=== PATIENT | male | born 1985 | race Caucasian/White ===

== ENCOUNTER 2017-08-22 09:01 | Emergency (ER) | payer OTHER ==
[2017-08-22 09:09] VITALS: BP 139/82
--- NOTE | 2017-08-22 09:40 | XRAY Report ---
EXAM: RIGHT HAND RADIOGRAPHY EXAM DATE: 08/22/2017 09:32 AM. CLINICAL HISTORY: Smashed hand working on car yesterday. COMPARISON: None. TECHNIQUE: 3 views. FINDINGS: Bones: Normal. No fractures or bone lesions. Joints: Normal. No subluxations. Soft Tissues: Soft tissue swelling dorsal to distal metacarpals and metacarpophalangeal joints. No r adiopaque foreign body or soft tissue gas demonstrated. IMPRESSION: 1. Soft tissue swelling dorsal to distal metacarpals and metacarpophalangeal joints. No radiopaque fo reign body or soft tissue gas demonstrated. [facility] Referring Provider Line: [phone] SITE ID: [id number]
--- NOTE | 2017-08-22 09:48 | ED Physician Documentation ---
PD HPI UPPER EXT INJURY - Stated complaint Stated Complaint: RT HAND INJ - Chief complaint Chief Complaint: Ext Problem - History obtained from History obtained from: Patient - History of Present Illness Location: Right, Hand Type of injury: Blunt / blow Where injury occurred: Work Timing - onset: Enter time (2199), Last night Timing - duration: Hours Timing - details: Abrupt onset, Still present Improved by: Rest, Ice, Immobilization Worsened by: Moving, Palpating Associated symptoms: Swelling, Discolored. 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 He has swelling to the dorsum of the hand and pain with movement. Review of Systems Constitutional: denies: Fever Eyes: denies: Decreased vision Ears: denies: Ear pain Nose: denies: Congestion Throat: denies: Sore throat Respiratory: denies: Cough GI: denies: Vomiting PD PAST MEDICAL HISTORY - Past Medical History Past Medical History: Yes Cardiovascular: None Respiratory: None Endocrine/Autoimmune: None GI: Other : None HEENT: None Psych: None Musculoskeletal: None Derm: None - Past Surgical History Past Surgical History: Yes - Present Medications Home Medications: Ambulatory Orders Medication Instructions Recorded Confirmed No Known Home Medications [No 08/22/17 08/22/17 Known Home Medications] - Allergies Allergies/Adverse Reactions: Allergies Allergy/AdvReac Type Severity Reaction Status Date / Time meperidine HCl * Allergy Unknown Verified 08/22/17 09:09 [From Demerol] morphine Allergy Unknown Verified 08/22/17 09:09 - Social History Does the pt smoke?: No Smoking Status: Never smoker Does the pt drink ETOH?: Yes Does the pt have substance abuse?: No - Immunizations Immunizations are current?: Yes - POLST Patient has POLST: No PD ED PE NORMAL - Vitals Vital signs reviewed: Yes (hypertensive ) - General General: Alert and oriented X 3, No acute distress, Well developed/nourished - HEENT HEENT: Atraumatic, PERRL - Respiratory Respiratory: No respiratory distress - Derm Derm: Normal color, Warm and dry, No rash - Extremities Extremities: Other (There is swelling and erythema to the dorsum of the right hand most significant at the 3rd MCP joint. ) - Neuro Neuro: No motor deficit, No sensory deficit Eye Opening: Spontaneous Motor: Obeys Commands Verbal: Oriented GCS Score: 15 - Psych Psych: Normal mood, Normal affect Results - Vitals Vitals: Vital Signs - 24 hr 08/22/17 09:06 Temperature 36.8 C Heart Rate 83 Respiratory 18 Rate Blood Pressure 139/82 H O2 Saturation 98 Oxygen O2 Source Room air - Rads (name of study) hand x-ray Radiology: Prelim report reviewed (Impression: 1. Soft tissue swelling dorsal to distal metacarpals and metacarpal phalangeal joints no radiopaque foreign body or soft tissue gas demonstrated. ), EMP read indepedently, See rad report Procedures - Splint (location) right hand Splint applied by: Tech Type of splint: Fiberglass, Volar cock up Other: Patient tolerated well, No complications, Neurovascular intact, Good alignment PD MEDICAL DECISION MAKING - ED course Complexity details: reviewed results, re-evaluated patient, considered differential, d/w patient ED course: 32-year-old male with a contusion to the right hand does not have evidence of fracture he has had a lot of swelling to this he is placed into a volar splint. Departure - Departure Disposition: 01 Home, Self Care Clinical Impression: Contusion of right hand Qualifiers: Encounter type: initial encounter Qualified Code(s): S60.221A - Contusion of right hand, initial encounter Condition: Stable Instructions: ED Contusion Hand Follow-Up: [facility] Taviashakeel Camejo [Provider Group] Forms: Activity restrictions
== END 2017-08-22 10:09 | disposition home or self-care (01) ==
LOC: ED 09:01
DX: S60.221A Contusion of right hand, initial encounter (principal); W20.8XXA Other cause of strike by thrown, projected or falling object, initial encounter; Y92.008 Other place in unspecified non-institutional (private) residence as the place of occurrence of the external cause
CPT/HCPCS: 29125; 99282

== ENCOUNTER 2018-02-03 15:42 | Emergency (ER) | payer OTHER ==
[2018-02-03 15:59] VITALS: BP 136/82
--- NOTE | 2018-02-03 17:13 | XRAY Report ---
Reason: chest pain Procedure Date: 02/03/2018 Accession Number: [id number] / [id number] Procedure: XR - Chest 2 View X-Ray CPT Code: 11210 FULL RESULT: EXAM: CHEST RADIOGRAPHY EXAM DATE: 02/03/2018 05:04 PM. CLINICAL HISTORY: Chest pain. COMPARISON: None. TECHNIQUE: 2 views. FINDINGS: Lungs/Pleura: No dense consolidation. No large effusion or pneumothorax. No pulmonary edema. Mediastinum: Heart and mediastinal contours are unremarkable. Other: None. IMPRESSION: No acute radiographic pulmonary abnormalities. [facility]
[2018-02-03] MEDS ORDERED: BENZONATATE 100 MG CAPSULE PO STA (17:20)
[2018-02-03] MEDS ORDERED: NAPROXEN 250 MG TABLET PO STA (17:20)
[2018-02-03] MEDS ORDERED: PSEUDOEPHEDRINE 30 MG TABLET PO STA (17:24)
--- NOTE | 2018-02-03 17:24 | ED Physician Documentation ---
History of Present Illness - Stated complaint Stated Complaint: COUGH/CP/SOA - Chief complaint Chief Complaint: General - Additonal information Additional information: 32-year-old male presents the emergency department with 3 days of nasal co ngestion, sore throat, cough chills and body aches. No relief with [id number] therapy. Symptoms are described as moderate. No other associated symptoms. Review of Systems Constitutional: reports: Fever, Chills, Myalgias, Fatigue Eyes: denies: Discharge Ears: reports: Ear pain Nose: reports: Rhinorrhea / runny nose, Congestion Throat: reports: Sore throat Respiratory: reports: Cough. denies: Hemoptysis : denies: Dysuria Skin: denies: Rash Musculoskeletal: denies: Neck pain Neurologic: denies: Generalized weakness Immunocompromised: denies: Chemotherapy PD PAST MEDICAL HISTORY - Past Medical History Past Medical History: No Cardiovascular: None Respiratory: None Endocrine/Autoimmune: None GI: Other : None HEENT: None Psych: None Musculoskeletal: None Derm: None - Past Surgical History Past Surgical History: Yes - Present Medications Home Medications: Ambulatory Orders Medication Instructions Recorded Confirmed Benzonatate [Tessalon Perle] 100 - 200 mg PO TID PRN #30 capsule 02/03/18 Naproxen [Naprosyn] 500 mg PO BID PRN 30 Days #30 02/03/18 tablet Pseudoephedrine HCl [Sudafed 240 mg PO DAILY PRN #30 tab.er.24h 02/03/18 24-Hour] - Allergies Allergies/Adverse Reactions: Allergies Allergy/AdvReac Type Severity Reaction Status Date / Time meperidine HCl * Allergy Unknown Verified 08/22/17 09:09 [From Demerol] morphine Allergy Unknown Verified 08/22/17 09:09 - Social History Does the pt smoke?: No Smoking Status: Never smoker Does the pt drink ETOH?: Yes Does the pt have substance abuse?: No - Immunizations Immunizations are current?: Yes - POLST Patient has POLST: No PD ED PE NORMAL - General General: Alert and oriented X 3, No acute distress - HEENT HEENT: Atraumatic, PERRL, EOMI, Ears normal, Pharynx benign - Neck Neck: Supple, no meningeal sign - Cardiac Cardiac: RRR, Strong equal pulses - Respiratory Respiratory: No respiratory distress, Clear bilaterally - Derm Derm: Normal color, Warm and dry - Extremities Extremities: No deformity, No edema - Neuro Neuro: Alert and oriented X 3, Normal speech - Psych Psych: Normal mood Results - Vitals Vitals: Vital Signs - 24 hr 02/03/18 15:57 Temperature 36.8 C Heart Rate 85 Respiratory 18 Rate Blood Pressure 136/82 H O2 Saturation 98 Oxygen O2 Source Room air - Rads (name of study) CXR Radiology: Final report received PD MEDICAL DECISION MAKING - ED course ED course: The patient's symptoms are suggestive of an influenza-like illness. The patient has no clinical evidence of sepsis, pneumonia or an etiology that would necessitate admission to the hospital or antibiotic therapy. The patient appears appropriate for outpatient symptomatic therapy. I discussed warning signs and the natural course of influenza. I recommended returning to the emergency department immediately for any worsening or any concerns. Departure - Departure Disposition: 01 Home, Self Care Clinical Impression: Influenza-like syndrome Condition: Good Instructions: ED Flu Prescriptions: Benzonatate [Tessalon Perle] 100 - 200 mg PO TID PRN #30 capsule PRN Reason: Cough Naproxen [Naprosyn] 500 mg PO BID PRN 30 Days #30 tablet PRN Reason: Pain Pseudoephedrine HCl [Sudafed 24-Hour] 240 mg PO DAILY PRN #30 tab.er.24h PRN Reason: Cold Symptons Comments: Please follow-up with primary care in 7-10 days for recheck. Please return to the emergency department immediately for worsening symptoms or any concerns. Forms: Activity restrictions
== END 2018-02-03 17:32 | disposition home or self-care (01) ==
LOC: ED 15:42
DX: J11.1 Influenza due to unidentified influenza virus with other respiratory manifestations (principal)
CPT/HCPCS: 71046; 93005; 99283; A9270

== ENCOUNTER 2018-03-17 09:22 | Emergency (ER) | payer OTHER ==
[2018-03-17 10:02] LABS: BASOPHILS % (AUTO) 0.1 %; EOSINOPHILS % (AUTO) 0.1 %; HGB - HEMOGLOBIN 15.6 g/dL (14.0-18.0); LYMPHOCYTES # (AUTO) 0.9 10^3/uL (1.5-3.5); LYMPHOCYTES % (AUTO) 7.1 %; MEAN CORPUSCULAR HEMOGLOBIN 30.3 pg (27.0-31.0); MEAN CORPUSCULAR HGB CONC 35.4 g/dL (32.0-36.0); MEAN CORPUSCULAR VOLUME 85.5 fL (80.0-94.0); MEAN PLATELET VOLUME 7.4 fL (7.4-11.4); MONOCYTES # (AUTO) 0.3 10^3/uL (0.0-1.0); MONOCYTES % (AUTO) 2.3 %; NEUTROPHILS # (AUTO) 11.6 10^3/uL (1.5-6.6); NEUTROPHILS % (AUTO) 90.4 %; PLT - PLATELET COUNT 209 10^3/uL (130-450); RED BLOOD COUNT 5.14 10^6/uL (4.70-6.10); RED CELL DISTRIBUTION WIDTH 12.5 % (12.0-15.0); WHITE BLOOD COUNT 12.8 x10^3/uL (4.8-10.8)
[2018-03-17 10:16] LABS: ALBUMIN 4.8 g/dL (3.2-5.5); ALBUMIN/GLOBULIN RATIO 1.8 (1.0-2.2); BILIRUBIN,TOTAL 0.7 mg/dL (0.2-1.0); CALCIUM 9.2 mg/dL (8.5-10.3); CREATININE 0.9 mg/dL (0.6-1.2); TOTAL PROTEIN 7.5 g/dL (6.7-8.2)
[2018-03-17] MEDS ORDERED: SODIUM CHLORIDE 0.9% 1,000 ML IV ONE (10:21)
[2018-03-17] MEDS ORDERED: ONDANSETRON 4 MG/2 ML VIAL IVP STA (10:21)
[2018-03-17] MEDS ORDERED: IOVERSOL 320 100 ML VIAL IVP ONE ×2 (10:50→11:01)
[2018-03-17] MEDS ORDERED: HYDROmorphone 1 MG/ML CARPUJECT IVP STA (11:04)
[2018-03-17 11:21] LABS: BILIRUBIN,URINE NEGATIVE (NEGATIVE); GLUCOSE, URINE (UA) NEGATIVE (NEGATIVE); KETONES,URINE (UA) TRACE mg/dL (NEGATIVE); LEUKOCYTE ESTERASE, URINE NEGATIVE (NEGATIVE); NITRITE,URINE NEGATIVE (NEGATIVE); OCCULT BLOOD,URINE NEGATIVE (NEGATIVE); PH,URINE 8.5 PH (5.0-7.5); PROTEIN,URINE NEGATIVE (NEGATIVE); UROBILINOGEN,URINE 0.2 (NORMAL) E.U./dL (NORMAL)
[2018-03-17 11:23] LABS: CLARITY,URINE SL. CLOUDY (CLEAR)
[2018-03-17 11:31] LABS: AMORPHOUS SEDIMENT,UR Moderate /LPF; BACTERIA,URINE Rare /HPF (None Seen); RBC,URINE 0-5 /HPF (0-5); SQUAMOUS EPITHELIAL CELL,UR NONE SEEN (<= Few)
--- NOTE | 2018-03-17 11:43 | CT Report ---
Reason: pain, n/v/d Procedure Date: 03/17/2018 Accession Number: [id number] / [id number] Procedure: CT - Abdomen/Pelvis W/ CPT Code: FULL RESULT: EXAM: CT ABDOMEN AND PELVIS WITH CONTRAST EXAM DATE: 03/17/2018 10:58 AM. CLINICAL HISTORY: 32-year-old male with abdominal pain, nausea, vomiting and diarrhea. COMPARISONS: None. TECHNIQUE: Emergent axial helical CT imaging was performed through the abdomen and pelvis. IV contrast: Opti 320, 100 mL. Enteric contrast: None. Reconstructions: Coronal and sagittal. In accordance with CT protocol optimization, one or more of the following dose reduction techniques were utilized for this exam: automated exposure control, adjustment of mA and/or KV based on patient size, or use of iterative reconstructive technique. FINDINGS: Lung Bases: Unremarkable. Liver: Normal. No masses. Gallbladder/Bile Ducts: No gallstones, wall thickening or dilated bile ducts. Spleen: Normal. Pancreas: Normal. Adrenal Glands: Normal. Kidneys: Normal. No masses, nephrolithiasis, hydroureter or hydronephrosis. Peritoneal Cavity/Bowel: Findings consistent with partial resection of the transverse and portion of the left colon with dilatation of the right-sided portion of the transverse colon with large amount of stool retention. Surrounding surgical clips. Moderate stool in the right colon. Remainder of the bowel unremarkable. No free fluid, free air or adenopathy. No masses or acute inflammatory process. Appendix not demonstrated and may be surgically absent. No secondary signs of appendicitis. Pelvic Organs: Normal. The bladder and visualized pelvic organs are within normal limits. Vasculature: No aneurysms or other significant abnormality. Bones: Normal. Other: None. IMPRESSION: Postsurgical changes consistent with partial resection of the transverse colon with dilatation of the right side of the transverse colon with moderate to large amount of stool content and moderate stool in the right colon, not dilated. Remainder of the bowel unremarkable. Abdomen and pelvis otherwise normal by CT findings. [facility]
[2018-03-17 12:22] VITALS: BP 121/66
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
== END 2018-03-17 13:14 | disposition home or self-care (01) ==
LOC: ED 09:22
DX: R10.33 Periumbilical pain (principal); R19.7 Diarrhea, unspecified
CPT/HCPCS: 36415; 74177; 80053; 81001; 83690; 85025; 96361; 96374; 96375; 99283; J1170; Q9967; 81003; 87086

== ENCOUNTER 2018-04-18 04:31 | Outpatient (CLI) | payer OTHER | END 2018-04-18 04:32 | disposition EMS.NT | LOC: EMS 04:31 | PROVIDERS: ATTEND Surgery | DX: R11.2 Nausea with vomiting, unspecified (principal) ==

== ENCOUNTER 2018-04-18 05:26 | Emergency (ER) | payer OTHER ==
[2018-04-18] MEDS ORDERED: ONDANSETRON 4 MG/2 ML VIAL IVP STA (05:37)
[2018-04-18] MEDS ORDERED: SODIUM CHLORIDE 0.9% 1,000 ML IV ONE (05:37)
[2018-04-18 05:38] VITALS: BP 122/84
[2018-04-18 05:45] LABS: BASOPHILS % (AUTO) 0.2 %; EOSINOPHILS % (AUTO) 0.2 %; HGB - HEMOGLOBIN 14.9 g/dL (14.0-18.0); LYMPHOCYTES # (AUTO) 0.3 10^3/uL (1.5-3.5); LYMPHOCYTES % (AUTO) 3.4 %; MEAN CORPUSCULAR HEMOGLOBIN 29.9 pg (27.0-31.0); MEAN CORPUSCULAR HGB CONC 33.8 g/dL (32.0-36.0); MEAN CORPUSCULAR VOLUME 88.5 fL (80.0-94.0); MEAN PLATELET VOLUME 7.4 fL (7.4-11.4); MONOCYTES # (AUTO) 0.3 10^3/uL (0.0-1.0); MONOCYTES % (AUTO) 2.9 %; NEUTROPHILS # (AUTO) 9.1 10^3/uL (1.5-6.6); NEUTROPHILS % (AUTO) 93.3 %; PLT - PLATELET COUNT 180 10^3/uL (130-450); RED CELL DISTRIBUTION WIDTH 12.7 % (12.0-15.0); WHITE BLOOD COUNT 9.7 x10^3/uL (4.8-10.8)
[2018-04-18 05:58] LABS: ALBUMIN 4.4 g/dL (3.2-5.5); ALBUMIN/GLOBULIN RATIO 1.8 (1.0-2.2); BILIRUBIN,TOTAL 1.3 mg/dL (0.2-1.0); CALCIUM 8.8 mg/dL (8.5-10.3); TOTAL PROTEIN 6.8 g/dL (6.7-8.2)
--- NOTE | 2018-04-18 06:00 | ED Physician Documentation ---
PD HPI NVD - Stated complaint Stated Complaint: DIARRHEA, VOMITING - Chief complaint Chief Complaint: Abd Pain - History obtained from History obtained from: Patient - History of Present Illness Timing - onset: How many hours ago (24) Timing - duration: Hours (24) Timing - details: Gradual onset Pain level max: 3 Pain level now: 3 Associated symptoms: Abdominal pain Contributing factors: No: Sick contact, Bad food, Anticoagulated Improved by: Laying still Worsened by: Eating - Additonal information Additional information: 32-year-old male with 24 hours of vomiting, diarrhea, abdominal pain. Review of Systems Ten Systems: 10 systems reviewed and negative Constitutional: reports: Reviewed and negative Eyes: reports: Reviewed and negative Ears: reports: Reviewed and negative Nose: reports: Reviewed and negative Throat: reports: Reviewed and negative Cardiac: reports: Reviewed and negative Respiratory: reports: Reviewed and negative GI: reports: Reviewed and negative : reports: Reviewed and negative Skin: reports: Reviewed and negative Musculoskeletal: reports: Reviewed and negative Neurologic: reports: Reviewed and negative Psychiatric: reports: Reviewed and negative Endocrine: reports: Reviewed and negative Immunocompromised: reports: Reviewed and negative PD PAST MEDICAL HISTORY - Past Medical History Cardiovascular: None Respiratory: None Endocrine/Autoimmune: None GI: Other : None HEENT: None Psych: None Musculoskeletal: None Derm: None Other Past Medical History: Reviewed and not pertinent - Past Surgical History Past Surgical History: Yes Other past surgical history: Reviewed and not pertinent - Present Medications Home Medications: Ambulatory Orders Medication Instructions Recorded Confirmed Ondansetron Odt [Zofran] 4 mg TL Q6H PRN #10 tablet 03/17/18 Loperamide [Imodium] 2 mg PO QID PRN #20 capsule 04/18/18 Ondansetron Odt [Zofran] 4 mg TL Q6H PRN #10 tablet 04/18/18 - Allergies Allergies/Adverse Reactions: Allergies Allergy/AdvReac Type Severity Reaction Status Date / Time meperidine HCl * Allergy Unknown Verified 03/17/18 09:59 [From Demerol] morphine Allergy Unknown Verified 03/17/18 09:59 - Living Situation Living Situation: reports: With spouse/s.o. Living Arrangement: reports: At home - Social History Does the pt smoke?: No Smoking Status: Never smoker Does the pt drink ETOH?: Yes Does the pt have substance abuse?: No - Family History Family history: reports: Other (Reviewed and not pertinent) - Immunizations Immunizations are current?: Yes - POLST Patient has POLST: No PD ED PE NORMAL - Vitals Vital signs reviewed: Yes - General General: Alert and oriented X 3, No acute distress - HEENT HEENT: PERRL - Neck Neck: Supple, no meningeal sign - Cardiac Cardiac: RRR, No murmur - Respiratory Respiratory: Clear bilaterally - Abdomen Abdomen: Normal bowel sounds, Soft, Non tender, Non distended - Derm Derm: Warm and dry - Extremities Extremities: No deformity - Neuro Neuro: Alert and oriented X 3 - Psych Psych: Normal mood, Normal affect Results - Vitals Vitals: Vital Signs - 24 hr 04/18/18 04/18/18 05:37 05:42 Temperature 37.4 C Heart Rate 92 90 Respiratory 16 16 Rate Blood Pressure 122/84 H 122/84 H O2 Saturation 97 100 Oxygen O2 Source Room air - Labs Labs: Laboratory Tests 04/18/18 04/18/18 05:34 05:34 WBC 9.7 RBC 5.00 Hgb 14.9 Hct 44.2 MCV 88.5 MCH 29.9 MCHC 33.8 RDW 12.7 Plt Count 180 MPV 7.4 Neut # (Auto) 9.1 H Lymph # (Auto) 0.3 L [place] # (Auto) 0.3 Eos # (Auto) 0.0 Baso # (Auto) 0.0 Absolute Nucleated RBC 0.00 Nucleated RBC % 0.0 Sodium 137 Potassium 4.1 Chloride 106 Carbon Dioxide 25 Anion Gap 6.0 BUN 13 Creatinine 1.0 Estimated GFR (MDRD) 87 L Glucose 112 H Calcium 8.8 Total Bilirubin 1.3 H AST 18 ALT 17 Alkaline Phosphatase 45 Total Protein 6.8 Albumin 4.4 Globulin 2.4 Albumin/Globulin Ratio 1.8 Lipase 23 PD MEDICAL DECISION MAKING - ED course Complexity details: reviewed results, re-evaluated patient, considered differential, d/w patient ED course: 32-year-old male with vomiting, diarrhea for 24 hours. Vitals unremarkable. Labs unremarkable. Patient treated symptomatically and discharged. Benign abdominal exam. Departure - Departure Disposition: 01 Home, Self Care Clinical Impression: Vomiting and diarrhea Instructions: ED Diet Vomiting Diarrhea, Vomit Diarrhea Self Care Follow-Up: Your, pcp [Other] Prescriptions: Loperamide [Imodium] 2 mg PO QID PRN #20 capsule PRN Reason: Diarrhea Ondansetron Odt [Zofran] 4 mg TL Q6H PRN #10 tablet PRN Reason: Nausea / Vomiting
== END 2018-04-18 06:41 | disposition home or self-care (01) ==
LOC: EDUNIT# → ED 05:26
DX: R11.10 Vomiting, unspecified (principal); R19.7 Diarrhea, unspecified
CPT/HCPCS: 36415; 80053; 83690; 85025; 96374; 99283

== ENCOUNTER 2019-01-20 08:53 | Emergency (ER) | payer OTHER ==
[2019-01-20] MEDS ORDERED: ALBUTEROL NEB 2.5 MG/3 ML INH STA (09:17)
[2019-01-20] MEDS ORDERED: predniSONE 20 MG TABLET PO STA (09:17)
--- NOTE | 2019-01-20 09:24 | ED Physician Documentation ---
PD HPI URI - Stated complaint Stated Complaint: COUGH/DIFFICULTY BREATHING - Chief complaint Chief Complaint: Resp - History obtained from History obtained from: Patient - History of Present Illness Timing - onset: How many weeks ago (2-3) Timing details: Gradual onset Pain level max: 2 Pain level now: 1 Associated symptoms: Nasal congestion, Dry cough, Dyspnea (wheezing). No: Fever, Chills Contributing factors: No: Immunocompromised, Unimmunized, COPD / asthma Improves by: Rest Worsened by: Activity Recently seen: Not recently seen Review of Systems Constitutional: denies: Fever, Chills GI: denies: Vomiting, Diarrhea Skin: denies: Rash Musculoskeletal: denies: Neck pain, Back pain PD PAST MEDICAL HISTORY - Past Medical History Cardiovascular: None Respiratory: None Endocrine/Autoimmune: None GI: Other : None HEENT: None Psych: None Musculoskeletal: None Derm: None - Past Surgical History Past Surgical History: Yes - Present Medications Home Medications: Ambulatory Orders Medication Instructions Recorded Confirmed Ondansetron Odt [Zofran] 4 mg TL Q6H PRN #10 tablet 03/17/18 Loperamide [Imodium] 2 mg PO QID PRN #20 capsule 04/18/18 Ondansetron Odt [Zofran] 4 mg TL Q6H PRN #10 tablet 04/18/18 Albuterol Sulf [Ventolin Hfa 1 - 2 puffs INH Q4HR PRN #1 inhaler 01/20/19 Inhaler] predniSONE [Prednisone] 40 mg PO DAILY #10 tablet 01/20/19 - Allergies Allergies/Adverse Reactions: Allergies Allergy/AdvReac Type Severity Reaction Status Date / Time meperidine HCl * Allergy Unknown Verified 01/20/19 09:03 [From Demerol] morphine Allergy Unknown Verified 01/20/19 09:03 - Social History Does the pt smoke?: No Smoking Status: Never smoker Does the pt drink ETOH?: Yes Does the pt have substance abuse?: No - Immunizations Immunizations are current?: Yes - POLST Patient has POLST: No PD ED PE NORMAL - Vitals Vital signs reviewed: Yes - General General: Alert and oriented X 3, Well developed/nourished - HEENT HEENT: PERRL, Ears normal, Moist mucous membranes, Pharynx benign - Neck Neck: Supple, no meningeal sign - Cardiac Cardiac: RRR, Strong equal pulses - Respiratory Respiratory: No respiratory distress, Other (Moderate wheezing bilaterally with diminished breath sounds) - Abdomen Abdomen: Soft, Non tender, Non distended - Derm Derm: Warm and dry - Neuro Neuro: Alert and oriented X 3 - Psych Psych: Normal mood, Normal affect Results - Vitals Vitals: Vital Signs - 24 hr 01/20/19 01/20/19 01/20/19 09:03 09:34 10:49 Temperature 36.8 C 36.4 C L Heart Rate 84 85 83 Respiratory 18 18 18 Rate Blood Pressure 133/74 H 122/82 H O2 Saturation 99 99 Oxygen O2 Source Room air - Rads (name of study) Chest x-ray Radiology: Prelim report reviewed, EMP read contemporaneously, See rad report (No acute disease) PD MEDICAL DECISION MAKING - ED course Complexity details: reviewed results, re-evaluated patient, considered differential, d/w patient ED course: Patient with what appears to be a viral upper respiratory infection. He was given albuterol treatment here. Lungs have improved aeration. Decreased wheezing. He is well-appearing, nontoxic. No acute findings on chest x-ray. We will continue supportive care and albuterol treatment at home. Patient counseled regarding signs and symptoms for which I believe and urgent re- evaluation would be necessary. Patient with good understanding of and agreement to plan and is comfortable going home at this time This document was made in part using voice recognition software. While efforts are made to proofread this document, sound alike and grammatical errors may occur. Departure - Departure Disposition: 01 Home, Self Care Clinical Impression: Viral URI with cough Condition: Good Instructions: ED URI Viral Follow-Up: Your,doctor in 1 week [Other] Prescriptions: Albuterol Sulf [Ventolin Hfa Inhaler] 1 - 2 puffs INH Q4HR PRN #1 inhaler PRN Reason: Shortness Of Air/Wheezing predniSONE [Prednisone] 40 mg PO DAILY #10 tablet Comments: Thankfully there is no pneumonia on your chest x-ray today. Follow-up with your doctor for further care. Return if you worsen. This should improve over the next week. Discharge Date/Time: 01/20/19 10:50
--- NOTE | 2019-01-20 09:42 | XRAY Report ---
Reason: cough Procedure Date: 01/20/2019 Accession Number: [id number] / [id number] Procedure: XR - Chest 2 View X-Ray CPT Code: 81239 FULL RESULT: EXAM: CHEST RADIOGRAPHY EXAM DATE: 01/20/2019 09:31 AM. CLINICAL HISTORY: Cough. COMPARISON: CHEST 2 VIEW 02/03/2018 4:57 PM. TECHNIQUE: 2 views. FINDINGS: Lungs/Pleura: No focal opacities evident. No pleural effusion. No pneumothorax. Normal volumes. Mediastinum: Heart and mediastinal contours are unremarkable. Other: Minimal thoracic dextroscoliosis. IMPRESSION: Clear lungs. No acute findings compared with 02/03/2018.
[2019-01-20 10:50] VITALS: BP 122/82
== END 2019-01-20 10:50 | disposition home or self-care (01) ==
LOC: ED 08:53
DX: J06.9 Acute upper respiratory infection, unspecified (principal)
CPT/HCPCS: 71046; 94640; 94664; 99283; 99284; J7512

== ENCOUNTER 2020-10-31 09:09 | Emergency (ER) | payer OTHER ==
[2020-10-31 09:37] VITALS: BP 137/81
--- NOTE | 2020-10-31 09:37 | ED Physician Documentation ---
PD HPI SKIN - Stated complaint Stated Complaint: BODY RASH - Chief complaint Chief Complaint: Wound - History obtained from History obtained from: Patient - Additional information Additional information: He was in [place] and doing some housework. Weeding outside. Now has developed a contact dermatitis especially in the hands but also a bit on the face and ankles. It is itchy. Review of Systems Constitutional: reports: Reviewed and negative Eyes: reports: Reviewed and negative Ears: reports: Reviewed and negative Nose: reports: Reviewed and negative Throat: reports: Reviewed and negative Cardiac: reports: Reviewed and negative PD PAST MEDICAL HISTORY - Past Medical History Cardiovascular: None Respiratory: None Endocrine/Autoimmune: None GI: Other : None HEENT: None Psych: None Musculoskeletal: None Derm: None - Past Surgical History Past Surgical History: Yes - Present Medications Home Medications: Ambulatory Orders Medication Instructions Recorded Confirmed Doxepin [SINEquan] 10 mg PO TID PRN #20 cap 10/31/20 Triamcinolone 0.1% Oint 1 applic TOP BID #80 gm 10/31/20 predniSONE [Deltasone] 20 mg PO [id number] #21 tab 10/31/20 - Allergies Allergies/Adverse Reactions: Allergies Allergy/AdvReac Type Severity Reaction Status Date / Time meperidine HCl * Allergy Unknown Verified 10/31/20 09:24 [From Demerol] morphine Allergy Unknown Verified 10/31/20 09:24 - Social History Does the pt smoke?: No Smoking Status: Never smoker Does the pt drink ETOH?: Yes Does the pt have substance abuse?: No - Immunizations Immunizations are current?: Yes - POLST Patient has POLST: No PD ED PE NORMAL - Vitals Vital signs reviewed: Yes - General General: Alert and oriented X 3, No acute distress - HEENT HEENT: PERRL, EOMI - Derm Derm: Other (Classical contact dermatitis/eczema especially on the dorsal hands, less so on the face and anterior ankles.) - Neuro Neuro: Alert and oriented X 3, Normal speech Results - Vitals Vitals: Vital Signs - 24 hr 10/31/20 09:23 Temperature 36.2 C L Heart Rate 67 Respiratory 16 Rate Blood Pressure 137/81 H O2 Saturation 98 Oxygen O2 Source Room air PD MEDICAL DECISION MAKING - ED course ED course: Probably an allergic reaction from poison oak or poison bar. The patient was counseled as to the diagnosis and need for follow-up. I counseled the patient with regard to signs and symptoms that would necessitate an urgent reevaluation in the emergency department. They understand they are welcome to return at any time if worse or if not improving as expected. This document was made in part using voice recognition software. While efforts are made to proofread this documents, sound alike and grammatical errors may occur. Departure - Departure Disposition: Home, Self Care Clinical Impression: Contact dermatitis Qualifiers: Contact dermatitis type: irritant Contact dermatitis trigger: non-food plants Qualified Code(s): L24.7 - Irritant contact dermatitis due to plants, except food Condition: Good Record reviewed to determine appropriate education?: Yes Instructions: ED Dermatitis Contact Prescriptions: predniSONE [Deltasone] 20 mg PO [id number] #21 tab Doxepin [SINEquan] 10 mg PO TID PRN #20 cap PRN Reason: Itching Triamcinolone 0.1% Oint 1 applic TOP BID #80 gm Comments: Apply the ointment to your hands liberally, especially at night under cotton garden gloves as discussed. Otherwise return for new or worsening symptoms. You still have the rash for probably a week but the medications will help make it less severe.
== END 2020-10-31 09:51 | disposition home or self-care (01) ==
LOC: ED 09:09
DX: L24.7 Irritant contact dermatitis due to plants, except food (principal)
CPT/HCPCS: 99283